=== PATIENT | female | born 1960 | race Caucasian/White ===

== ENCOUNTER 2018-01-25 00:46 | Observation (INO) | payer BC ==
[2018-01-24 20:13] LABS: INR 0.93
[~2018-01-25] VITALS: Ht 162.6 cm; Wt 97.5 kg
[2018-01-25] VITALS (16 sets, daily range): BP systolic 110–155; BP diastolic 70–98
[~2018-01-25 00:46] MED LIST: AMPH15TA3 PO; CARI3CAP PO; FLUO40CA76 PO
[2018-01-25] MEDS ORDERED: LIDO/EPI 2% MPF 1:200,000 20ML ONE (06:40)
[2018-01-25] MEDS ORDERED: ROPIVACAINE 0.2% 20 ML VIAL ONE (06:40)
[2018-01-25] MEDS ORDERED: fentaNYL CITR 250 MCG/5 ML AMP ONE (07:10)
[2018-01-25] MEDS ORDERED: LIDOCAINE MPF 1% 5 ML VIAL ONE (07:11)
[2018-01-25] MEDS ORDERED: PROPOFOL EMUL(*) 10MG/ML 20 ML 20 ML ONE (07:11)
[2018-01-25] MEDS ORDERED: DEXAMETHASONE SOD PHOS 10MG/ML ONE (07:11)
[2018-01-25] MEDS ORDERED: ONDANSETRON 4 MG/2 ML VIAL ONE (07:11)
[2018-01-25] MEDS ORDERED: SUGAMMADEX SOD 200 MG/2 ML SDV ONE (07:46)
[2018-01-25] MEDS ORDERED: ePHEDrine 25 MG/5 ML DISP.SYR IVP ONE (07:49)
[2018-01-25] MEDS ORDERED: KETAMINE HCL 200 MG/20 ML MDV ONE (07:57)
[2018-01-25] MEDS ORDERED: ceFAZolin(*) 2GM/D5W 50ML 50 ML IVPB ONE (09:15)
[2018-01-25] MEDS ORDERED: LIDOCAINE/SOD BICARB 8.4% SYR ID ONE (09:15)
[2018-01-25] MEDS ORDERED: CELECOXIB 200 MG CAP PO ONE (09:15)
[2018-01-25] MEDS ORDERED: BACITRACIN 50000 UNIT/VIAL 100,000 UNIT in NS 0.9% 3000 ML IRRIGATION BAG 3,000 ML IR ONE (09:15)
[2018-01-25] MEDS ORDERED: MIDAZOLAM 2 MG/2 ML VIAL IVP PRN (09:15)
[2018-01-25] MEDS ORDERED: PREGABALIN 150 MG CAPSULE PO ONE (09:15)
[2018-01-25] MEDS ORDERED: NORMOSOL R SOLN(*) 1000 ML BAG 1,000 ML IV PRN (09:15)
[2018-01-25] MEDS ORDERED: FAMOTIDINE 20 MG TAB PO ONE (09:15)
[2018-01-25] MEDS ORDERED: ACETAMINOPHEN 500 MG TAB PO ONE (09:15)
[2018-01-25] MEDS ORDERED: MAGNESIUM CITRATE 300 ML BTL PO PRN (09:45)
[2018-01-25] MEDS ORDERED: diphenhydrAMINE 25 MG CAP PO PRN (09:45)
[2018-01-25] MEDS ORDERED: FLUSH 10 ML SYR IVP PRN (09:45)
[2018-01-25] MEDS ORDERED: PROMETHAZINE 25 MG/ML 1 ML AMP IVP PRN (09:45)
[2018-01-25] MEDS ORDERED: BISACODYL 10 MG SUPP PR PRN (09:45)
[2018-01-25] MEDS ORDERED: HYDROmorphone HCL 2 MG/ML SDV IVP PRN (09:45)
[2018-01-25] MEDS ORDERED: MAGNESIUM HYDROXIDE* 30ML UDCP PO PRN (09:45)
[2018-01-25] MEDS ORDERED: ZOLPIDEM TARTRATE 5 MG TAB PO PRN (09:45)
[2018-01-25] MEDS ORDERED: ONDANSETRON 4 MG/2 ML VIAL IVP PRN (09:45)
[2018-01-25] MEDS ORDERED: LR 1000 ML BAG 1000 ML IV PRN (09:45)
[2018-01-25] MEDS ORDERED: diphenhydrAMINE 50 MG/ML VIAL IVP PRN (09:45)
[2018-01-25] MEDS ORDERED: fentaNYL CITR 100 MCG/2 ML AMP ONE ×2 (10:03→10:21)
--- NOTE | 2018-01-25 11:38 | RADIOLOGY IMAGING REPORT ---
FACILITY: [facility] - [place], [place] PATIENT NAME: Cleo Kamara : 1960 MR: [id number] V: [id number] EXAM DATE: ORDERING PHYSICIAN: KRISTI MAC TECHNOLOGIST: Location: [facility] Patient: Cleo Kamara : 1960 Visit/Account:[id number] Date of Sevice: 01/25/2018 Exam type: SHOULDER 1 VIEW RIGHT History: S/P TOTAL SHOULDER ARTHROPLASTY Comparison: None. Findings: There is a right shoulder arthroplasty that appears in good anatomic alignment on this single AP view . IMPRESSION: 1. As above Report Dictated By: Shante Shine MD at 01/25/2018 11:30 AM Report E-Signed By: Shante Shine MD at 01/25/2018 11:34 AM WSN:[id number]
--- NOTE | 2018-01-25 13:18 | Hospitalist Consultation ---
History of Present Illness Requesting Physician Dr. Block Reason for Consult Medication Management Chief Complaint s/p right shoulder replacement History of Present Illness She was admitted s/p right shoulder replacement. It is reported the surgery went well and without complication. History Problems: (1) History of bilateral knee replacement (2) Bipolar depression Status: Chronic Home Meds Reported Medications Cariprazine Hydrochloride (Vraylar) 3 Mg Capsule, 1 TAB PO DAILY 01/18/18 Amphet Asp/Amphet/D-Amphet (ADDERALL 15 MG TABLET) 15 Mg Tablet, 15 MG PO BID 01/18/18 Fluoxetine Hcl (PROZAC) 40 Mg Capsule, 40 MG PO QDAY, CAPSULE 01/18/18 Allergies: Coded Allergies: No Known Drug Allergies (Unverified , 01/18/18) Hx Smoking: No Smoking Status: Never Smoker Caffeine Intake: Coffee Caffeine/Cups Per Day: 1 Hx Alcohol Use: No Hx Substance Use Disorder: No Social Drug Use: Never History of IV Drug Use: No Review of Systems All Systems Reviewed/Normal: Yes, Except as Noted Exam Vital Signs Vital Signs Date Time Temp Pulse Resp B/P (MAP) Pulse Ox O2 Delivery O2 Flow Rate FiO2 01/25/18 10:30 81 12 94 01/25/18 06:10 98.0 144/80 (101) Room Air General Appearance: Alert, Awake, No Acute Distress, Afebrile Neuro: No Gross deficits Cardiovascular: Regular Rate and Rhythm Respiratory: No Respiratory Distress, Clear to Auscultation GI: Abd Soft and Non-Tender Psych: Alert & Oriented X3, Appropriate Mood & Affect Assessment and Plan Problems: (1) Status post replacement of right shoulder joint Status: Acute Assessment & Plan: Followed by Dr. Block. (2) Bipolar depression Status: Chronic Assessment & Plan: She is on chronic treatment with Prozac, Vraylar, and Adderall. We will restart Prozac, but the other medications will be held at this time. Venous Thromboembolism Antithrombotics Is Pt On Any Antithrombotics?: ARELY Doty LINUX ADMIN January 25, 2018 13:18
[2018-01-25] MEDS: ceFAZolin(*) 2GM/D5W 50ML 50 ML IVPB SCH ×2 (18:38→23:53)
--- NOTE | 2018-01-25 20:02 | OPERATIVE REPORT 1 ---
EVENT DATE: January 25, 2018 SURGEON: Dre Block MD ANESTHESIOLOGIST: Sukhdeep England MD ANESTHESIA: General LMA anesthesia. RESIDENT CARE SUPERVISOR: SAAD Gaitan PREOPERATIVE DIAGNOSIS Right shoulder osteoarthritis. POSTOPERATIVE DIAGNOSIS Right shoulder osteoarthritis. PROCEDURE PERFORMED Right total shoulder arthroplasty. FINDINGS The patient has a significant amount of arthritic changes associated with the shoulder, but was amenable for a total shoulder replacement. ESTIMATED BLOOD LOSS About 100 mL. DRAINS None. COMPLICATIONS None. TOURNIQUET TIME Not applicable. IMPLANTS USED [employer] Global Advantage shoulder with a Global Lakewood Peg 48 Glenoid and 8 stem, an 8 Global Unite body, and a 48 x 18 eccentric head with the eccentricity pointing superior and posterior. SPECIMENS None. INDICATIONS AND HISTORY This patient is a 57-year-old female who presented to my clinic for evaluation of right shoulder pain and irritation going on for some time. She continued to have pain and irritation despite conservative management, and so therefore, she wanted to undergo a total shoulder arthroplasty today, January 25, 2018. The risks and benefits were discussed with the patient, and informed consent was obtained , and so therefore, we got her set up to do this today. She understood there was no guarantee associated with it, and it may continue to give her some trouble. DESCRIPTION OF PROCEDURE As the patient was brought in the operating room, she and the procedure were both verified. She was placed supine on the operating table and induced and intubated by Anesthesia. She was then put in a beach chair position with the right arm prepped and draped. After the right arm was prepped and draped, a timeout was observed verifying the correct patient and procedure. The standard incision was made over the anterior aspect of the shoulder and taken through the skin and subcutaneous tissue after anesthetizing the skin with lidocaine with epinephrine. I then went through a standard deltopectoral approach and was able to get down through the deltopectoral interval and move the cephalic vein to the lateral side. I then also performed a biceps tenodesis in this area with a heavy Ethibond suture. I was then able to take down the subscapularis without any major difficulty and tag the subscapularis for later repair. Once I did this, I was then able to get into the joint and external rotate and dislocate the shoulder without any major difficulty. After placing a Darrach behind the area, I was then able to drill a small hole in the superior aspect of the shoulder and then commence reaming. I reamed all the way up to a 10, but the 10 did not fit completely, and so the 8 mm reamer was chosen. I then used the standard guide from the [employer] Advantage shoulder system to cut the humeral head. Once the humeral head was cut, I removed all the osteophytes and then turned attention to the glenoid where I was able to put a Darrach on the posterior aspect of the glenoid. I then also put a small retractor on the anterior aspect and one inferior. I then removed the labrum and cut the rest of the biceps tendon and then was able to carry out the glenoid back to a nice, stable aspect. This was then followed by irrigation with copious amounts of saline, and then I was able to drill the central portion of the glenoid without any major difficulty for the Lakewood Peg. I then put in the drill guide for the three subsequent peripheral holes and then was able to put in a trial without any issues. This was a 48 as measured by the head and then also that we scaled the glenoid for before after reaming. Once we did this, I was then able to put in the trial Lakewood Peg without any difficulty, and so then I cemented in the final Lakewood Peg and then held it in place until the cement was hardened. There were no signs of wobble or issues associated with this. I then turned attention back to the humeral side where I was able to use the Brosteotome from the [employer] Unite system, and then this was followed by the standard broach. The broach fit well, but it did have a little bit of an inferior tilt to it, so therefore, we used the centricity with the head pointed mostly superior and just slightly posterior, and this fit better on the glenoid itself. This then was reduced and trialed, and there was excellent tension associated with it and movement, and so therefore, this was the final component chosen. I then irrigated with copious amounts of saline, bone grafted the humerus, and then was able to drill six holes in order to pass six sutures through the lesser tuberosity in order to repair the subscapularis. This was then followed by placement of the final prosthesis and then tying the subscapularis in with those six sutures. I then moved it back and forth to make sure there were no signs of problems. I irrigated again and then closed the deltopectoral approach with 0 Stratafix, then followed by 2-0 Stratafix in the subcutaneous tissue, and then subcuticular 4-0 Monocryl in the skin. Then, the wound was anesthetized with ropivacaine again, dressed with Steri-Strips, gauze 4 x 4's, and a soft dressing. The patient was awakened, extubated, and transferred to PACU in stable condition. She will be admitted overnight. DANIELA
[2018-01-26 05:55] VITALS: BP 131/76
[2018-01-26] MEDS ORDERED: OXYC-865 PO (07:33)
[2018-01-26 07:42] VITALS: BP 123/93
[2018-01-26] MEDS: ceFAZolin(*) 2GM/D5W 50ML 50 ML IVPB SCH (07:58)
[2018-01-26] MEDS ORDERED: PANTOPRAZOLE SOD 40 MG TABEC PO SCH (09:00)
[2018-01-26] MEDS ORDERED: FLUoxetine HCL 20 MG CAP PO SCH (09:00)
--- NOTE | 2018-01-26 09:13 | Hospitalist Progress Note ---
Subjective Progress Notes Subjective She has no complaints this morning. Patient Complains of: Cardiovascular: No: Chest Pain Respiratory: No: Shortness of Breath Physical Exam Vital Signs Date Time Temp Pulse Resp B/P (MAP) Pulse Ox O2 Delivery O2 Flow Rate FiO2 01/26/18 07:51 89 Room Air 01/26/18 07:42 97.9 73 16 123/93 (103) 01/25/18 20:06 2.0 Intake and Output 01/27/18 07:00 Intake Total 60 ml Balance 60 ml IV Total 60 ml General Appearance: Alert, Awake, No Acute Distress, Afebrile Neuro: No Gross deficits Cardiovascular: Regular Rate and Rhythm Respiratory: No Respiratory Distress, Clear to Auscultation GI: Soft and Non-Tender Psych: Alert & Oriented X3, Appropriate Mood & Affect Result Diagram: 01/26/18 0551 Assessment and Plan Problems: (1) Status post replacement of right shoulder joint Status: Acute Assessment & Plan: Followed by Dr. Block. (2) Bipolar depression Status: Chronic Assessment & Plan: She is on chronic treatment with Prozac, Vraylar, and Adderall. We will restart Prozac, but the other medications will be held at this time until she has completed her pain medication regimen. Exam Sepsis Risk: No Definite Risk ARELY KING January 26, 2018 09:13
[2018-01-26 10:07] VITALS: Ht 162.6 cm; Wt 97.5 kg
== END 2018-01-26 07:30 | disposition home or self-care (01) ==
LOC: OR 00:46 → MED 11:15
PROVIDERS: ADMIT Orthopaedic Surgery; ATTEND Orthopaedic Surgery
DX: M19.011 Primary osteoarthritis, right shoulder (principal); E66.9 Obesity, unspecified; F31.9 Bipolar disorder, unspecified; Z79.899 Other long term (current) drug therapy
CPT/HCPCS: 23472; 36415; 73020; 85014; 85018; 85610; 86850; 86900; 86901; 97110; 97165; 97535; A4565; C1713; C1776; G0378; J1100; J2001; J2250; J2405; J2704; J2795; J3010; J3490; J0690